=== PATIENT | male | born 1995 | race Two or more races ===

== ENCOUNTER 2025-04-25 21:36 | Emergency (ER) | payer MEDICAID, SELFPAY ==
[2025-04-25 21:37] VITALS: BMI 25.8
[2025-04-25 22:12] VITALS: BP 111/68; PULSE 54; RESP 17; TEMP 36.4; O2SAT 98
--- NOTE | 2025-04-25 22:22 | XR_ITS ---
Examination: CT brain head without contrast. 2-D sagittal coronal reconstructions Date and time of exam:April 25, 2025 1034 hrs., Comparison November 22, 2018 Ground-level fall today with injury to the head, head pain CTDI: vol (mGy):46.9 DLP: (mGycm):903 Technique: Multiple CT axial sections of the brain have been obtained, 5 mm slice thickness. Contrast has not been administered. 2-D sagittal, coronal reconstructions have been obtained Low dose protocols were performed. One or more of the following dose reduction techniques were used; automated exposure control, adjustment of the mA and/or KV according to patient size, use of iterative reconstruction technique. Findings: No significant ventricular enlargement. Intra-axial or extra-axial hemorrhage density is not seen. No mass effect or midline shift Basal cisterns are not remarkable. Fourth ventricle is midline. Cranial vault intact. Impression: Negative for acute hemorrhage, mass effect or midline shift
--- NOTE | 2025-04-25 22:23 | PD.EDRME ---
Rapid Medical Screening Exam [facility] Arrival date/time: 04/25/25 21:36 29M with no significant PMH presents to ED with alcohol intoxication with witnessed fall with possible LOC. Chief Complaint: Fall Vital signs: Vital Signs Temperature 97.6 F 04/25/25 22:12 Pulse Rate 54 L 04/25/25 22:12 Respiratory Rate 17 04/25/25 22:12 Blood Pressure 111/68 04/25/25 22:12 Pulse Oximetry (%) 98 04/25/25 22:12 Oxygen Delivery Method Room Air 04/25/25 22:12
[2025-04-25 22:49] LABS: Base Excess, Venous 0 (-3-3); O2 Saturation, Venous 51 % (96-97); PCO2, Venous 51 mmHg (36-56); PO2, Venous 30 mmHg (15-58); pH, Venous 7.33 (7.33-7.66)
[2025-04-25 22:51] LABS: Basophils # (Auto) 0.1 Thou/mm3 (0.0-0.2); Basophils % (Auto) 1 % (0-2.5); Eosinophils # (Auto) 0.1 Thou/mm3 (0.0-0.5); Eosinophils % (Auto) 1 % (0-10); Hematocrit 41.3 % (41.0-53.0); Hemoglobin 14.1 g/dL (13.5-16.0); Immature Granulocytes Auto 0.06 Thou/mm3 (0.00-0.00); Lymphocytes # (Auto) 2.5 Thou/mm3 (1.0-4.8); Lymphocytes % (Auto) 19 % (10-50); Mean Corpuscular HGB Conc 34.1 g/dl (31.0-37.0); Mean Corpuscular Hemoglobin 30.2 pg (25.0-35.0); Mean Corpuscular Volume 88 fL (80-100); Monocytes # (Auto) 0.6 Thou/mm3 (0.0-0.8); Monocytes % (Auto) 4 % (0-12); Neutrophils # (Auto) 9.4 Thou/mm3 (1.8-7.7); Neutrophils % (Auto) 74 % (37-80); Nucleated Red Blood Cell # 0.00 Thou/mm3 (0.00-0.00); Nucleated Red Blood Cell % 0 /100 WBC (0); Platelet Count 231 Thou/mm3 (140-440); RDW Standard Deviation 41.2 fL (35.1-43.9); Red Blood Count 4.67 Miln/mm3 (4.50-5.90); White Blood Count 12.7 Thou/mm3 (3.8-10.6)
[2025-04-25 23:09] LABS: Alanine Aminotransferase 40 U/L (10-49); Albumin, Serum 4.7 gm/dL (3.5-5.0); Albumin/Globulin Ratio 1.5 (1.2-2.2); Alcohol, Blood Medical 239.3 mg/dL (0-10.0); Alkaline Phosphatase 102 U/L (46-116); Anion Gap 10 (7-16); Aspartate Amino Transferase 34 U/L (0-34); BUN/Creatinine Ratio 6 Ratio (12-20); Bilirubin,Total 0.5 mg/dL (0.3-1.2); Blood Urea Nitrogen 5 mg/dL (9-23); Calcium 8.8 mg/dL (8.3-10.6); Calcium (Corrected) 8.8 mg/dL (8.5-10.1); Carbon Dioxide 27.0 mMol/L (20.0-31.0); Chloride 106 mMol/L (98-107); Creatinine (Component) 0.8 mg/dL (0.6-1.3); Estimated Creatinine Clearance 133.0 mL/min (>60); Globulin 3.2 gm/dL (2.3-3.5); Glucose 105 mg/dL (74-106); Osmolality,Calculated 282 (275-295); Potassium 3.6 mMol/L (3.4-5.1); Sodium 143 mMol/L (136-145); Total Protein 7.9 gm/dL (5.7-8.2); eGFR > 60 See Note
[2025-04-26 00:12] VITALS: BP 101/76; PULSE 68; RESP 19; O2SAT 99
[2025-04-26 01:55] VITALS: BP 101/76; PULSE 75; RESP 14; O2SAT 99
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
[2025-04-26 02:50] VITALS: BP 101/85; PULSE 65; RESP 14; TEMP 37; O2SAT 99
== END 2025-04-26 02:50 | disposition home or self-care (01) ==
PROVIDERS: Physician Assistant; Emergency Provider Emergency Medicine
DX: S06.0X0A Concussion without loss of consciousness, initial encounter (principal); F10.929 Alcohol use, unspecified with intoxication, unspecified; W19.XXXA Unspecified fall, initial encounter; Y90.8 Blood alcohol level of 240 mg/100 ml or more
CPT/HCPCS: 36415; 70450; 80053; 80307; 80320; 82803; 85025; 99283; G0480